=== PATIENT | female | born 1965 | race Asian ===

== ENCOUNTER → 2019-02-26 | Outpatient (CLI) | payer BC ==
[~2019-02-26] MED LIST: ATORVASTATIN CA20 MG PO; BIOTIN PO; CALCIUM CITRAT250 MG PO; IBANDRONATE SO150 MG PO; METFORMIN HCL500 M1 PO; VITAMIN C PO; VITAMIN D1000 UNI1 PO
--- NOTE | 2019-02-26 11:50 | Diagnostic Imaging Report ---
EXAMINATION: CHEST 2 VIEWS INDICATION: Hypertension COMPARISON: None FINDINGS: LINES/TUBES:None LUNGS:The lungs are well-inflated. No focal consolidation or pulmonary edema. PLEURA:No pleural effusion or pneumothorax. MEDIASTINUM:The cardiomediastinal silhouette appears normal in size and shape. BONES/SOFT TISSUES:No acute osseous injury. ABDOMEN:No free air under the diaphragm. IMPRESSION: No focal pneumonia or pulmonary edema. Signed by: Aydin Calhoun MD on 02/26/2019 11:47 AM
--- NOTE | 2019-02-26 12:29 | Diagnostic Imaging Report ---
EXAMINATION: Renal Doppler ultrasound. CLINICAL HISTORY :Hypertension COMPARISON: None TECHNIQUE: Grayscale and color Doppler and waveform evaluation of the kidneys and bladder was performed in transverse and longitudinal planes. Doppler interrogation of the main, hilar, segmental and arcuate renal arteries bilaterally as well as evaluation of the aorta were performed. FINDINGS: RIGHT KIDNEY: The right kidney measures 9.4 cm in length and shows normal echogenicity. The right renal cortex measures 1.7 cm. No hydronephrosis, shadowing calculi or solid mass lesions. . Right main renal artery PSV is 114 cm/sec. Highest right segmental artery PSV is 78.5 cm/sec. Arterial waveforms are normal. The right renal artery PSV/aortic PSV ratio is 0.8. LEFT KIDNEY: The left kidney measures 10.7 cm in length and shows normal echogenicity. The left renal cortex measures 1.6 cm. No hydronephrosis, shadowing calculi or solid mass lesions. Left main renal artery PSV is 138 cm/sec. Highest left segmental artery PSV is 71.3cm/sec. Arterial waveforms are normal. The left renal artery PSV/aortic PSV ratio is 0.9. Abdominal aortic PSV is 150 cm/sec. BLADDER: Unremarkable. IMPRESSION: Unremarkable kidneys. No hydronephrosis or renal calculi. Normal renal artery doppler with no sonographic evidence of renal artery stenosis. Signed by: Aydin Calhoun MD on 02/26/2019 12:25 PM
== END ==
LOC: RAD 08:20
PROVIDERS: ATTEND Family Medicine
DX: I10 Essential (primary) hypertension (principal)
CPT/HCPCS: 71046; 76770; 93306; 93976

== ENCOUNTER → 2020-04-08 | Outpatient (CLI) | payer BC | LOC: CT 09:59 | PROVIDERS: ATTEND Family Medicine | DX: R10.9 Unspecified abdominal pain (principal); K76.89 Other specified diseases of liver; K42.9 Umbilical hernia without obstruction or gangrene | CPT/HCPCS: 74176 ==

== ENCOUNTER → 2020-04-22 | Outpatient (CLI) | payer BC | END | disposition home or self-care (01) | LOC: RAD 13:59 | PROVIDERS: ATTEND Family Medicine | DX: R05 Cough (principal) | CPT/HCPCS: 71046 ==

== ENCOUNTER → 2021-01-24 | Day surgery (SDC) | payer BC ==
[~2021-01-24] MED LIST changes: +AMLODIPINE BESYL5 MG PO; +LIDOCAINE HCL 2% LOCAL INJ 5 ML SDV VIAL INJ ONE; +LISINOPRIL10 MG PO; +PROPOFOL IV EMULSION 10 MG/ML 20 ML VIAL ONE; +PROTONIX20 MG PO; +[UNRECOGNIZED DRUG - OTHER]
[2021-01-24 12:40] VITALS: BP 137/72
== END | disposition home or self-care (01) ==
LOC: OR 09:20
PROVIDERS: ATTEND Internal Medicine Gastroenterology
DX: K21.9 Gastro-esophageal reflux disease without esophagitis (principal); D12.4 Benign neoplasm of descending colon; K44.9 Diaphragmatic hernia without obstruction or gangrene; K29.70 Gastritis, unspecified, without bleeding; I10 Essential (primary) hypertension; E11.9 Type 2 diabetes mellitus without complications; M81.0 Age-related osteoporosis without current pathological fracture; R61 Generalized hyperhidrosis; R01.1 Cardiac murmur, unspecified; Z01.812 Encounter for preprocedural laboratory examination; Z20.822 Contact with and (suspected) exposure to COVID-19
CPT/HCPCS: 36415; 43239; 45380; 45384; 82948; J2001; J2704; U0002; 45378

== ENCOUNTER → 2021-04-18 | Outpatient (CLI) | payer BC ==
[~2021-04-18] MED LIST changes: -LIDOCAINE HCL 2% LOCAL INJ 5 ML SDV VIAL INJ ONE; -PROPOFOL IV EMULSION 10 MG/ML 20 ML VIAL ONE
== END ==
LOC: MAMMO 09:22
PROVIDERS: ATTEND Family Medicine
DX: Z12.31 Encounter for screening mammogram for malignant neoplasm of breast (principal); M81.8 Other osteoporosis without current pathological fracture
CPT/HCPCS: 77067; 77080

== ENCOUNTER → 2021-04-24 | Outpatient (CLI) | payer BC | LOC: US 08:27 | PROVIDERS: ATTEND Internal Medicine Gastroenterology | DX: R74.8 Abnormal levels of other serum enzymes (principal) | CPT/HCPCS: 76705 ==